=== PATIENT | male | born 1960 | race Caucasian/White ===

== ENCOUNTER 2018-03-19 11:53 | Outpatient (CLI) | payer MEDICAID ==
--- NOTE | 2018-03-19 16:05 | XRAY Report ---
Reason: PAIN IN LEG Procedure Date: 03/19/2018 Accession Number: [id number] / [id number] Procedure: XR - Ankle 3 View RT CPT Code: FULL RESULT: EXAM: RIGHT ANKLE RADIOGRAPHY RIGHT FOOT RADIOGRAPHY EXAM DATE: 03/19/2018 12:09 PM. CLINICAL HISTORY: Chronic right foot and ankle pain. COMPARISON: None. TECHNIQUE: Right ankle 3 views, right foot 3 views. FINDINGS: Bones: There is an old healed distal shaft right fibular fracture. There is bridging ossification of the tibiofemoral syndesmosis centered about 8 cm above the ankle joint. There is a 2 cm area of irregular sclerosis centrally in the distal tibial metaphysis which could represent an old bone infarct or enchondroma. There is no cortical erosion. No fracture or focal lucent or sclerotic lesion is identified in the right foot. Joints: There is complete joint space loss at the tibiotalar articulation superiorly. There is no sonny ankle mortise widening. Foot joints are preserved except for minimal osteophyte formation at the talonavicular joint. Soft Tissues: No significant soft tissue swelling. IMPRESSION: 1. Old healed distal shaft right fibula fracture with ossification of the tibiofemoral syndesmosis. 2. 2 cm area of irregular sclerosis centrally in the distal right tibial metaphysis which may represent a bone infarct or enchondroma. 3. 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 4. Right foot joint spaces are preserved except for mild osteoarthritis at the talonavicular joint. RADIA
== END 2018-03-19 11:54 | disposition home or self-care (01) ==
LOC: DI 11:53
PROVIDERS: ATTEND Family Medicine
DX: M89.8X7 Other specified disorders of bone, ankle and foot (principal); M19.171 Post-traumatic osteoarthritis, right ankle and foot; M19.071 Primary osteoarthritis, right ankle and foot

== ENCOUNTER 2018-05-14 11:43 | Emergency (ER) | payer MEDICAID ==
--- NOTE | 2018-05-14 12:26 | ED Physician Documentation ---
PD HPI CHEST PAIN - Stated complaint Stated Complaint: ABN HR - Chief complaint Chief Complaint: Cardiac - History obtained from History obtained from: Patient - History of Present Illness Timing - onset: Today (57-year-old gentleman with history of coronary disease was in cardiac rehab today where they noted frequent PVCs and he was referred to the emergency department for further evaluation and treatment. He feels fine, there is no associated fatigue, shortness of breath, chest pain, pedal edema etc. He does state that he was on magnesium supplementation after his last discharge and has been out for a few days.) Review of Systems Constitutional: denies: Fever, Chills, Fatigue Cardiac: denies: Chest pain / pressure, Palpitations Respiratory: denies: Dyspnea, Cough PD PAST MEDICAL HISTORY - Present Medications Home Medications: Ambulatory Orders Medication Instructions Recorded Confirmed Magnesium Oxide 400 mg PO BID #60 tablet 05/14/18 - Allergies Allergies/Adverse Reactions: Allergies Allergy/AdvReac Type Severity Reaction Status Date / Time No Known Drug Allergies Allergy Verified 05/14/18 11:56 PD ED PE NORMAL - Vitals Vital signs reviewed: Yes - General General: Alert and oriented X 3, No acute distress - Neck Neck: Supple, no meningeal sign, No bony TTP - Cardiac Cardiac: RRR (With frequent ectopy), No murmur - Respiratory Respiratory: No respiratory distress, Clear bilaterally - Abdomen Abdomen: Non tender - Extremities Extremities: No edema, No calf tenderness / cord - Neuro Neuro: Alert and oriented X 3, Normal speech Results - Vitals Vitals: Vital Signs - 24 hr 05/14/18 05/14/18 11:45 12:34 Temperature 36.2 C L Heart Rate 81 80 Respiratory 16 18 Rate Blood Pressure 113/92 H 113/73 O2 Saturation 96 96 Oxygen O2 Source Room air - EKG (time done) 1149 Rate: Rate (enter#) (77) Rhythm: NSR [place]: Normal Intervals: Other (IVCD) Ischemia: Q waves (inferior) Computer interpretation: Agree with computer - Labs Labs: Laboratory Tests 05/14/18 05/14/18 05/14/18 12:55 12:55 12:55 WBC 7.9 RBC 4.53 L Hgb 15.2 Hct 42.7 MCV 94.1 H MCH 33.6 H MCHC 35.7 RDW 13.5 Plt Count 174 MPV 7.8 Neut # (Auto) 6.2 Lymph # (Auto) 0.9 L [place] # (Auto) 0.5 Eos # (Auto) 0.2 Baso # (Auto) 0.1 Absolute Nucleated RBC 0.00 Nucleated RBC % 0.1 Sodium 135 Potassium 4.0 Chloride 102 Carbon Dioxide 25 Anion Gap 8.0 BUN 13 Creatinine 1.1 Estimated GFR (MDRD) 69 L Glucose 130 H Calcium 9.4 Magnesium 1.8 Total Bilirubin 0.8 AST 21 ALT 16 Alkaline Phosphatase 48 Troponin I < 0.04 Total Protein 7.9 Albumin 4.3 Globulin 3.6 Albumin/Globulin Ratio 1.2 Lipase 42 PD MEDICAL DECISION MAKING - ED course ED course: 57-year-old gentleman who has coronary disease and was on magnesium supplementation but recently ran out presents with asymptomatic PVCs from [facility] rehab. No major events during observation. And his PVCs seem to lessen to about once a minute. Departure - Departure Disposition: 01 Home, Self Care Clinical Impression: PVCs (premature ventricular contractions) Condition: Good Record reviewed to determine appropriate education?: Yes Instructions: Premature Ventricular Contract Tx, Premature Ventricular Contract About Prescriptions: Magnesium Oxide 400 mg PO BID #60 tablet Comments: Follow-up with your [facility] for further evaluation and treatment. Return for any symptoms.
[2018-05-14] MEDS ORDERED: MAGNESIUM OXIDE 400 MG TABLET PO STA (12:45)
[2018-05-14 13:04] LABS: EOSINOPHILS # (AUTO) 0.2 10^3/uL (0.0-0.7); HGB - HEMOGLOBIN 15.2 g/dL (14.0-18.0); LYMPHOCYTES # (AUTO) 0.9 10^3/uL (1.5-3.5); LYMPHOCYTES % (AUTO) 11.2 %; RED BLOOD COUNT 4.53 10^6/uL (4.70-6.10)
[2018-05-14 13:07] LABS: BASOPHILS # (AUTO) 0.1 10^3/uL (0.0-0.1); BASOPHILS % (AUTO) 1.1 %; EOSINOPHILS % (AUTO) 2.8 %; MEAN CORPUSCULAR HEMOGLOBIN 33.6 pg (27.0-31.0); MEAN CORPUSCULAR HGB CONC 35.7 g/dL (32.0-36.0); MEAN CORPUSCULAR VOLUME 94.1 fL (80.0-94.0); MEAN PLATELET VOLUME 7.8 fL (7.4-11.4); MONOCYTES # (AUTO) 0.5 10^3/uL (0.0-1.0); MONOCYTES % (AUTO) 6.7 %; NEUTROPHILS # (AUTO) 6.2 10^3/uL (1.5-6.6); NEUTROPHILS % (AUTO) 78.2 %; PLT - PLATELET COUNT 174 10^3/uL (130-450); RED CELL DISTRIBUTION WIDTH 13.5 % (12.0-15.0); WHITE BLOOD COUNT 7.9 x10^3/uL (4.8-10.8)
[2018-05-14 13:18] LABS: ALBUMIN 4.3 g/dL (3.2-5.5); ALBUMIN/GLOBULIN RATIO 1.2 (1.0-2.2); BILIRUBIN,TOTAL 0.8 mg/dL (0.2-1.0); CALCIUM 9.4 mg/dL (8.5-10.3); CREATININE 1.1 mg/dL (0.6-1.2); MAGNESIUM 1.8 mg/dL (1.7-2.8); TOTAL PROTEIN 7.9 g/dL (6.7-8.2)
[2018-05-14 13:35] VITALS: BP 111/80
== END 2018-05-14 13:45 | disposition home or self-care (01) ==
LOC: ED 11:43
DX: I49.3 Ventricular premature depolarization (principal); I25.10 Atherosclerotic heart disease of native coronary artery without angina pectoris
CPT/HCPCS: 36415; 80053; 83690; 83735; 84484; 85025; 93005; 99283; A9270